=== PATIENT | male | born 1980 | race African-American/Black ===

== ENCOUNTER 2016-09-15 21:08 | Emergency (ER) | payer OTHER ==
--- NOTE | 2016-09-15 23:09 | DIAGNOSTIC IMAGING REPORT ---
PROCEDURE: US SCROTUM/TESTICLE INDICATION: SCROTAL PAIN TECHNIQUE: Booker scale and color Doppler sonographic images through the scrotum were obtained. COMPARISON: None. FINDINGS: RIGHT TESTICLE: Right testicle is of normal size (4.0 x 1.8 cm) with normal vascularity. Right epididymis is normal size and a 1.4 cm simple epididymal cysts. LEFT TESTICLE: Left testicle is of normal size (4.6 x 2.0 cm) with normal vascularity. Left epididymis is of normal size (with a 1.1 cm of simple cyst. Small left hydrocele IMPRESSION: 1. Normal testicles. 2. Bilateral epididymal cysts (right 1.4 cm, left 1.1 cm) represent incidental finding. 3. Small left hydrocele.
--- NOTE | 2016-09-15 23:27 | ED CLINICAL REPORT ---
Clinical Report - Physicians/Mid Levels [facility] [address] [place] [address] 09/15/2016 21:08 Patient: NOMI FERGUSON Arrived- By private vehicle. Historian- patient. HISTORY OF PRESENT ILLNESS Chief Complaint: RIGHT TESTICULAR PAIN. This started past week and is still present. The problem is described as moderate. It was abrupt in onset and has been intermittent but is not gone now. No penile discharge, discomfort with urination, urinary frequency, genital lesion or urgency of urination. No flank pain, Masterson catheter problem, inguinal swelling or problem with the foreskin. The patient has had moderate testicular pain, involving the right testicle with swelling. No redness. Able to void. Not voiding only small amounts. The patient has had exposure to a sexually transmitted disease; (reports yearly negative screens. last was Aug 2016). No homosexual activity. Similar symptoms previously: ( states he followed up with a urologist about a year ago. thought about getting it removed however states he was thinking about having more kids. reports his had her tubes tide recently so will rethink that option.). Recent medical care: Not recently seen/assessed. REVIEW OF SYSTEMS No fever, chills, hematuria, abdominal pain or vomiting. No diarrhea, black stools, bloody stools, chest pain or difficulty breathing. No skin rash. All systems otherwise negative, except as recorded above. PAST HISTORY See nurses notes. No history of sexually transmitted disease. Medications: Albuterol Sulfate Inhalation 1 unit dose, PRN. 3 other inhalers (pt can't remember name ). [place] (med for diabetes). PredniSONE Oral 10 mg, daily. Medication for BP . Albuterol Sulfate HFA Inhalation 2 puffs, as needed. GlyBURIDE Oral 20mg , daily. MetFORMIN HCl Oral 1500mg, 2x a day. Allergies: No Known Drug Allergy. SOCIAL HISTORY Never smoker. No alcohol use or drug use. No recent travel. Is a local resident. ADDITIONAL NOTES The nursing notes have been reviewed. PHYSICAL EXAM Vital Signs: 09/15/2016 21:47 BP: 123/78. HR: 93. RR: 16. O2 saturation: 97%. Temp: 98.3 F. Pain level now: 8/10. Blood pressure normal. Oxygen saturation normal. Appearance: Alert. Oriented X3. No acute distress. CVS: Heart sounds normal. Rate normal. Rhythm normal. There is no decreased capillary refill. Respiratory: No respiratory distress. Breath sounds normal. Abdomen: Soft and nontender. Bowel sounds normal. No organomegaly. No mass. Femoral pulses equal. Back: Normal external inspection. : (normal-appearing external male genitalia. No rashes or lesions. No inguinal lymphadenopathy. No discharge. Normal-appearing glance. Circumcised. Small 1 cm cyst located on the epididymis on the right testicle. The rest of the testicular exam is otherwise unremarkable. Normal smooth contour with normal sized. Scrotum without any erythema or other findings. No signs of foreign nasal gangrene.). Skin: Skin warm and dry. Normal skin color. No rash. Normal skin turgor. Extremities: Extremities exhibit normal ROM. No lower extremity edema. Neuro: Oriented X 3. No motor deficit. No sensory deficit. LABS, X-RAYS, AND EKG Laboratory Tests: UA-Culture if indicated: (RUPALI: 09/15/2016 22:05) ( MsgRcvd 09/15/2016 22:16) Final results Test Result Flag Units (Reference) URINE COLOR YELLOW URINE APPEARANCE CLEAR URINE GLUCOSE 3+ (NEGATIVE) URINE BILIRUBIN NEGATIVE (NEGATIVE) URINE KETONE NEGATIVE (NEGATIVE) URINE SPECIFIC GRAVITY 1.020 (1.010-1.030) URINE PH 6.0 (5.0-8.0) URINE PROTEIN NEGATIVE (NEGATIVE) URINE UROBILINOGEN 0.2 EU/dL (0.2-1.0) URINE NITRITE NEGATIVE (NEGATIVE) URINE BLOOD NEGATIVE (NEGATIVE) URINE LEUK ESTERASE NEGATIVE (NEGATIVE) URINE RBC 0-1 rbc/hpf (0-1) URINE WBC 0-1 wbc/hpf (0-1) URINE EPITHELIAL CELLS 0-1 EPI/hpf (0-5) URINE BACTERIA NONE SEEN (NONE SEEN) URINE COMMENT CULT NOT INDICATED URINE CULTURES ARE SET-UP BASED ON THE FOLLOWING CRITERIA:POSITIVE NITRITEPOSITIVE LEUKOCYTE ESTERASEGREATER THAN 10 WHITE BLOOD CELLSMODERATE (2+) OR GREATER BACTERIA . PROGRESS AND PROCEDURES Course of Care: The patient is a pleasant 36-year-old male with past medical history significant for testicular cyst who presents for evaluation of right-sided testicular pain. The patient appears nontoxic on examination. History and examare negative for any risk factors for sexual transmitted infection. Patient will be violated for testicular pain with ultrasound for evaluation of torsion as well as urinalysis to look for signs of epididymitis or prostatitis. Vital signs in the emergency department otherwise unremarkable. Patient is agreeable to treatment plan. Pain medication as been ordered. patient reevaluated after medications an ultrasound is been performed. The patient is resting in bed and in no acute distress. Patient has headphones on. I discussion with patient in regards to his workup here in the emergency department. No evidence of torsion at this time. Patient is nontoxic. Pain is controlled. I discussion with patient in regards to his presentation here in the emergency department and need for urology follow-up. Do not feel patient needs to be admitted to the hospital or require further emergency department workup/evaluation. Referral to urologist provided from the emergency department. Patient was encouraged to contact his urologist first and use the urology referral second if he is unable to establish contact with his former urologist. Disposition: Discharged. Condition: good. CLINICAL IMPRESSION 09/15/2016 21:47 BP: 123/78. HR: 93. RR: 16. O2 saturation: 97%. Temp: 98.3 F. Pain level now: 8/10. Blood pressure normal. Oxygen saturation normal. Left acute hydrocele. No infected hydrocele. Acute pain in the right testicle. chronic bilateral testicular cysts. INSTRUCTIONS Warnings: GENERAL WARNINGS: Return or contact your physician immediately if your condition worsens or changes unexpectedly, if not improving as expected, or if other problems arise. Specifically return if pain, vomiting, bleeding, breathing difficulty or fever. worsening symptoms or other concerns. Your Current Medications: CONTINUE TAKING THE FOLLOWING MEDICATIONS: 3 other inhalers * : pt can't remember name. Albuterol Sulfate HFA Inhalation : 2 puffs, prn. Albuterol Sulfate Inhalation : 1 unit dose PRN. GlyBURIDE Oral : 20mg daily. [place]* : med for diabetes. Medication for BP *. MetFORMIN HCl Oral : 1500mg 2x a day. PredniSONE Oral : 10 mg daily. Prescription Medications: Percocet 5 mg/325 mg: take 1 tablet orally every 6 hours as needed for pain. Dispense twelve (12). No refill. Substitution is permissible. Follow-up: Return to the emergency department as needed. Follow up with your doctor in three days. Reason for referral: recheck today's concerns. Summary of care provided to patient via paper. Screening today revealed the patient's blood pressure to be in the normal range. The patient should follow up with a primary care provider for blood pressure management. Understanding of the discharge instructions verbalized by patient. Follow-up with: Aryan Ny MD, Urology, , [address] [facility] , [facility], [id number] Follow up in one week. Reason for referral: contact if you are unable to follow up with your urologist. Summary of care provided to patient via paper. (Electronically signed by Feroz Ely Dr. 09/21/2016 5:02)
--- NOTE | 2016-09-15 23:27 | ED ORDER SUMMARY ---
..... Patient: NOMI FERGUSON OrderSheet [facility] VisitID: [id number] [place] [address] 36y, M Registration Date/Time: 09/15/2016 ORDER SHEET Weight: 111.1 kg (stated) Allergies: No Known Drug Allergy GENERAL ORDERS: US Scrotum/Testicular Urgent (21:41 09/15/2016 Nitin Carias) (Ack 21:45 Kaikeba.comnabil ER Secondary School Teacher) UA-Culture if indicated Urgent (21:41 09/15/2016 Nitin Carias) (Ack 21:45 Demetrice ER Secondary School Teacher) (22:06 JQuivey R.N.) MEDICATION ORDERS: Percocet PO 5/325 mg (HIGH ALERT MEDICATION, NOW) (21:57 09/15/2016 Nitin Carias) (Ack 22:04 JQuivey R.N.) (22:06 JQuivey R.N.) IV FLUIDS: ORDER SHEET NOTES: [Electronically signed by Petar Irene R.N. (02:03 09/16/2016)] [Electronically signed by Feroz Ely Dr. (05:02 09/21/2016)] [Electronically locked/signed by Petar Irene R.N. (02:03 09/16/2016)]
--- NOTE | 2016-09-15 23:27 | ED NURSING NOTES ---
Clinical Report - Nurses [facility] [address] [place] [address] 09/15/2016 21:08 Patient: NOMI FERGUSON TRIAGE Triage time 21:47. Acuity: LEVEL 3. Chief Complaint: (Swelling testicles). 22:02. Alert. SEPSIS SCREEN: Sepsis Screen. Negative (no infection suspected/documented). --22:03 Petar Irene R.N. 21:47 09/15/16. BP: 123/78. HR: 93. RR: 16. O2 saturation: 97%. Temp: 98.3 F (oral). Pain level now: 8/10. --22:03 Petar Irene R.N. Weight: 111.1 kg stated. Height/Length: 75 inches Per Patient. BMI: 30.6. --00:00 Petar Irene R.N. Medications Albuterol Sulfate HFA Inhalation 2 puffs, as needed. GlyBURIDE Oral 20mg , daily. MetFORMIN HCl Oral 1500mg, 2x a day. --21:55 Petar Irene R.N. Medication for BP . --21:56 Petar Irene R.N. PredniSONE Oral 10 mg, daily. --21:56 Petar Irene R.N. [place] (med for diabetes). --21:59 Petar Irene R.N. 3 other inhalers (pt can't remember name ). --21:59 Petar Irene R.N. Albuterol Sulfate Inhalation 1 unit dose, PRN. --22:00 Petar Irene R.N. Medication/allergy information source: the patient. --22:03 Petar Irene R.N. Allergies No Known Drug Allergy. --21:54 Petar Irene R.N. History Arrived by private vehicle. Historian: patient. Accompanied by friend. Primary physician (Adelia). Onset. (1 weeks ago). ( Patient reports he had a ultrasound about 1 yr ago and was told he has cysts on his testicles, about 1 week ago he began to have swelling and increased pain of his right). Treatment SAMPLE DYE MIXER: None. SOCIAL HX: No infectious disease exposure. ABUSE ASSESSMENT: No report of abuse. FALL RISK ASSESSMENT: Fall risk assessment completed. No fall risk identified. NUTRITIONAL RISK ASSESSMENT: The nutritional risk assessment revealed no deficiencies. FUNCTIONAL ASSESSMENT: Functional assessment: no impairments noted. LEARNING NEEDS ASSESSMENT: The learning needs assessment revealed no barriers. SKIN INTEGRITY ASSESSMENT: Skin integrity risk assessment completed. No skin integrity risk identified. --22:03 Petar Irene R.N. PROBLEMS: COPD - Chronic Obstructive Pulmonary Disease. Allergic Rhinitis. Headache. Arthritis. Hypertension. Asthma. Diabetes Mellitus. --22:00 Petar Irene R.N. ADDITIONAL SURGERIES: Cholecystectomy. Gallbladder Surgery. --22:00 Petar Irene R.N. Interventions ID band on patient. To treatment room. --22:03 Petar Irene R.N. PHYSICAL ASSESSMENT 21:51. Ambulatory to room. Patient gowned. GENERAL / NEURO / PSYCH: Alert. Oriented X 4. HEENT: Mucous membranes are pink. RESPIRATORY: Respirations not labored. SKIN: Skin is warm and dry. --21:51 Petar Irene R.N. 21:53. GI / : ( right testicle swollen). --21:53 Petar Irene R.N. NURSING PROGRESS NOTES 21:51. Head of bed elevated. Two patient identifiers checked. Call light placed in reach. Side rails up x 1. Bed placed in lowest position. Brakes of bed on. Patient ready for evaluation- chart flagged. --21:51 Petar Irene R.N. 22:01. Patient ID band checked for patient name and birthdate: patient confirmed. Clean catch urine collected with return of yellow-colored clear urine; sample sent to lab for urinalysis. Specimen labeled in the presence of the patient. --22:04 Petar Irene R.N. 22:06 09/15/2016 Percocet (Oxycodone-Acetaminophen) PO 5/325 mg Tablets 1 tab given. Allergies verified, confirmed 5 rights and sedative warning given to the patient. --22:06 Petar Irene R.N. 23:11 medical imaging tech with patient for exam. --23:23 Petar Irene R.N. 23:55. The patient is calm and resting quietly. Overall patient status is improved- he states feels better. SKIN: Skin is warm and dry. Skin color within normal limits. --23:59 Petar Irene R.N. DISPOSITION / DISCHARGE Departure time: 23:58. Condition at departure: stable. No learning barriers present. Discharge instructions provided and reviewed with the patient. Reviewed medication(s) side effects, precautions, dosing and course information. Prescription(s) given to the patient. Patient verbalized understanding. Written instructions provided in Greenlandic. The patient was discharged home and accompanied by inner layer scrubber tender. He left the Emergency Department ambulatory and via private vehicle. Darklight Inspector driving. FALL RISK ASSESSMENT: Fall risk assessment completed. No fall risk identified. --23:59 Petar Irene R.N. 23:55 09/15/16. BP: 120/73. HR: 76. RR: 15. O2 saturation: 100%. Pain level now: 0/10. --23:59 Petar Irene R.N. Locked/Released at 09/16/2016 2:03 by Petar Irene R.N.
--- NOTE | 2016-09-15 23:27 | ED ORDER SUMMARY ---
..... Patient: NOMI FERGUSON OrderSheet [facility] VisitID: [id number] [place] [address] 36y, M Registration Date/Time: 09/15/2016 ORDER SHEET Weight: 111.1 kg (stated) Allergies: No Known Drug Allergy GENERAL ORDERS: US Scrotum/Testicular Urgent (21:41 09/15/2016 Nitin Carias) (Ack 21:45 [place] PERLnabil ER Clinical Evaluator) UA-Culture if indicated Urgent (21:41 09/15/2016 Nitin Carias) (Ack 21:45 Demetrice ER Clinical Evaluator) (22:06 JQuivey R.N.) MEDICATION ORDERS: Percocet PO 5/325 mg (HIGH ALERT MEDICATION, NOW) (21:57 09/15/2016 Nitin Carias) (Ack 22:04 JQuivey R.N.) (22:06 JQuivey R.N.) IV FLUIDS: ORDER SHEET NOTES: [Electronically signed by Petra Irene R.N. (02:03 09/16/2016)] [Electronically signed by Feroz Ely Dr. (05:02 09/21/2016)] [Electronically locked/signed by Petar Irene R.N. (02:03 09/16/2016)]
--- NOTE | 2016-09-15 23:27 | ED NURSING NOTES ---
Clinical Report - Nurses [facility] [address] [place] [address] 09/15/2016 21:08 Patient: NOMI FERGUSON TRIAGE Triage time 21:47. Acuity: LEVEL 3. Chief Complaint: (Swelling testicles). 22:02. Alert. SEPSIS SCREEN: Sepsis Screen. Negative (no infection suspected/documented). --22:03 Petar Irene R.N. 21:47 09/15/16. BP: 123/78. HR: 93. RR: 16. O2 saturation: 97%. Temp: 98.3 F (oral). Pain level now: 8/10. --22:03 Petar Irene R.N. Weight: 111.1 kg stated. Height/Length: 75 inches Per Patient. BMI: 30.6. --00:00 Petar Irene R.N. Medications Albuterol Sulfate HFA Inhalation 2 puffs, as needed. GlyBURIDE Oral 20mg , daily. MetFORMIN HCl Oral 1500mg, 2x a day. --21:55 Petar Irene R.N. Medication for BP . --21:56 Petar Irene R.N. PredniSONE Oral 10 mg, daily. --21:56 Petar Irene R.N. [place] (med for diabetes). --21:59 Petar Irene R.N. 3 other inhalers (pt can't remember name ). --21:59 Petar Irene R.N. Albuterol Sulfate Inhalation 1 unit dose, PRN. --22:00 Ptear Irene R.N. Medication/allergy information source: the patient. --22:03 Petar Irene R.N. Allergies No Known Drug Allergy. --21:54 Petar Irene R.N. History Arrived by private vehicle. Historian: patient. Accompanied by friend. Primary physician (Adelia). Onset. (1 weeks ago). ( Patient reports he had a ultrasound about 1 yr ago and was told he has cysts on his testicles, about 1 week ago he began to have swelling and increased pain of his right). Treatment DETECTIVE AND INTELLIGENCE ANALYST: None. SOCIAL HX: No infectious disease exposure. ABUSE ASSESSMENT: No report of abuse. FALL RISK ASSESSMENT: Fall risk assessment completed. No fall risk identified. NUTRITIONAL RISK ASSESSMENT: The nutritional risk assessment revealed no deficiencies. FUNCTIONAL ASSESSMENT: Functional assessment: no impairments noted. LEARNING NEEDS ASSESSMENT: The learning needs assessment revealed no barriers. SKIN INTEGRITY ASSESSMENT: Skin integrity risk assessment completed. No skin integrity risk identified. --22:03 Petar Irene R.N. PROBLEMS: COPD - Chronic Obstructive Pulmonary Disease. Allergic Rhinitis. Headache. Arthritis. Hypertension. Asthma. Diabetes Mellitus. --22:00 Petar Irene R.N. ADDITIONAL SURGERIES: Cholecystectomy. Gallbladder Surgery. --22:00 Petar Irene R.N. Interventions ID band on patient. To treatment room. --22:03 Petar Irene R.N. PHYSICAL ASSESSMENT 21:51. Ambulatory to room. Patient gowned. GENERAL / NEURO / PSYCH: Alert. Oriented X 4. HEENT: Mucous membranes are pink. RESPIRATORY: Respirations not labored. SKIN: Skin is warm and dry. --21:51 Petar Irene R.N. 21:53. GI / : ( right testicle swollen). --21:53 Petar Irene R.N. NURSING PROGRESS NOTES 21:51. Head of bed elevated. Two patient identifiers checked. Call light placed in reach. Side rails up x 1. Bed placed in lowest position. Brakes of bed on. Patient ready for evaluation- chart flagged. --21:51 Petar Irene R.N. 22:01. Patient ID band checked for patient name and birthdate: patient confirmed. Clean catch urine collected with return of yellow-colored clear urine; sample sent to lab for urinalysis. Specimen labeled in the presence of the patient. --22:04 Petar Irene R.N. 22:06 09/15/2016 Percocet (Oxycodone-Acetaminophen) PO 5/325 mg Tablets 1 tab given. Allergies verified, confirmed 5 rights and sedative warning given to the patient. --22:06 Petar Irene R.N. 23:11 refrigerator repair technician with patient for exam. --23:23 Petar Irene R.N. 23:55. The patient is calm and resting quietly. Overall patient status is improved- he states feels better. SKIN: Skin is warm and dry. Skin color within normal limits. --23:59 Petar Irene R.N. DISPOSITION / DISCHARGE Departure time: 23:58. Condition at departure: stable. No learning barriers present. Discharge instructions provided and reviewed with the patient. Reviewed medication(s) side effects, precautions, dosing and course information. Prescription(s) given to the patient. Patient verbalized understanding. Written instructions provided in Armenian. The patient was discharged home and accompanied by speeder hand. He left the Emergency Department ambulatory and via private vehicle. Mine Exploration Engineer driving. FALL RISK ASSESSMENT: Fall risk assessment completed. No fall risk identified. --23:59 Petar Irene R.N. 23:55 09/15/16. BP: 120/73. HR: 76. RR: 15. O2 saturation: 100%. Pain level now: 0/10. --23:59 Petar Irene R.N. Locked/Released at 09/16/2016 2:03 by Petar Irene R.N.
--- NOTE | 2016-09-21 05:02 | ED DISCHARGE INSTRUCTIONS ---
Patient: NOMI FERGUSON General Instructions [facility] VisitID: [id number] [place] [address] 36y, M Registration Date/Time: 09/15/2016 09/15/2016 21:47 BP: 123/78. HR: 93. RR: 16. O2 saturation: 97%. Temp: 98.3 F. Pain level now: 8/10. Blood pressure normal. Oxygen saturation normal. Left acute hydrocele. No infected hydrocele. Acute pain in the right testicle. chronic bilateral testicular cysts. INSTRUCTIONS Warnings: GENERAL WARNINGS: Return or contact your physician immediately if your condition worsens or changes unexpectedly, if not improving as expected, or if other problems arise. Specifically return if pain, vomiting, bleeding, breathing difficulty or fever. worsening symptoms or other concerns. Your Current Medications: CONTINUE TAKING THE FOLLOWING MEDICATIONS: 3 other inhalers * : pt can't remember name. Albuterol Sulfate HFA Inhalation : 2 puffs, prn. Albuterol Sulfate Inhalation : 1 unit dose PRN. GlyBURIDE Oral : 20mg daily. [place]* : med for diabetes. Medication for BP *. MetFORMIN HCl Oral : 1500mg 2x a day. PredniSONE Oral : 10 mg daily. Prescription Medications: Percocet 5 mg/325 mg: take 1 tablet orally every 6 hours as needed for pain. Dispense twelve (12). No refill. Substitution is permissible. Follow-up: Return to the emergency department as needed. Follow up with your doctor in three days. Reason for referral: recheck today's concerns. Summary of care provided to patient via paper. Screening today revealed the patient's blood pressure to be in the normal range. The patient should follow up with a primary care provider for blood pressure management. Understanding of the discharge instructions verbalized by patient. Follow-up with: Aryan Ny MD, Urology, , [address], , [place], [id number] Follow up in one week. Reason for referral: contact if you are unable to follow up with your urologist. Summary of care provided to patient via paper. ADDITIONAL INFORMATION Hydrocele [Type Not Specified] Inside the womb, the testicles first form in the abdomen of the male fetus. Just before , the testicles move down into the scrotum. As this happens, fluid from the abdomen may pass into the scrotum and become sealed off there in a small sac. This is called a non-communicating hydrocele . In some infants the passage between the abdomen and the scrotum remains open. In this case, the bulge may increase and decrease in size as the fluid passes back and forth from the abdomen to the scrotum. This is called a communicating hydrocele . The danger of this second kind of hydrocele is that it can lead to a hernia . A hernia looks like a painless bulge in the groin or scrotum. An hernia can cause gangrene and rupture of the intestine. This is a life-threatening emergency and requires immediate surgery. So, it must be watched for. Most hydroceles shrink and disappear by the age of one or two years and require no treatment. If the hydrocele does not go away by 2 years of age, it may need to be corrected with surgery. Home Care: A small hydrocele will not interfere in any way with normal activity. There are no special precautions that need to be taken. Follow Up with your doctor or as advised by our staff. with your doctor for routine exams to be sure the hydrocele is shrinking and that no hernia appears. Get Prompt Medical Attention if any of the following occur: -- A new bulge in the groin that appears just above the thigh crease or in the scrotum -- Changes in size of the hydrocele (getting smaller then larger then smaller; or gets larger and stays larger) -- Pain, redness or tenderness in the hydrocele Pain, Uncertain Cause [Acute] Pain is the bodys way of calling attention to a problem. Pain can be caused by many conditions - some minor, some serious. In your case, we were not able to find the exact cause for your pain. However, at this time there is no sign of any serious or life-threatening illness causing your pain. Sometimes more tests will be needed to determine the cause. Other times, just allowing more time to pass will either make it clear what the problem is, or the pain will go away by itself. Home Care: You may use acetaminophen (Tylenol) or ibuprofen (Motrin, Advil) to control pain, unless another medicine was prescribed. [NOTE: If you have chronic liver or kidney disease or ever had a stomach ulcer or GI bleeding, talk with your doctor before using these medicines.] Follow Up with your doctor or as advised by our staff. Get Prompt Medical Attention if any of the following occur: Changes in the pattern of your pain Appearance of new symptoms Fever of 100.4F (38C) or higher, or as directed by your healthcare provider Oxycodone Hydrochloride, Acetaminophen Oral tablet What is this medicine? ACETAMINOPHEN; OXYCODONE (a set a HORACIO janeth fen; ox i KOE done) is a pain reliever. It is used to treat mild to moderate pain. How should I use this medicine? Take this medicine by mouth with a full glass of water. Follow the directions on the prescription label. Take your medicine at regular intervals. Do not take your medicine more often than directed. Talk to your labor relations worker regarding the use of this medicine in children. Special care may be needed. Patients over 65 years old may have a stronger reaction and need a smaller dose. What side effects may I notice from receiving this medicine? Side effects that you should report to your doctor or health animal care specialist as soon as possible: allergic reactions like skin rash, itching or hives, swelling of the face, lips, or tongue breathing difficulties, wheezing confusion light headedness or fainting spells severe stomach pain yellowing of the skin or the whites of the eyes Side effects that usually do not require medical attention (report to your doctor or health animal care specialist if they continue or are bothersome): dizziness drowsiness nausea vomiting What may interact with this medicine? alcohol antihistamines barbiturates like amobarbital, butalbital, butabarbital, methohexital, pentobarbital, phenobarbital, thiopental, and secobarbital benztropine drugs for bladder problems like solifenacin, trospium, oxybutynin, tolterodine, hyoscyamine, and methscopolamine drugs for breathing problems like ipratropium and tiotropium drugs for certain stomach or intestine problems like propantheline, homatropine methylbromide, glycopyrrolate, atropine, belladonna, and dicyclomine general anesthetics like etomidate, ketamine, nitrous oxide, propofol, desflurane, enflurane, halothane, isoflurane, and sevoflurane medicines for depression, anxiety, or psychotic disturbances medicines for sleep muscle relaxants naltrexone narcotic medicines (opiates) for pain phenothiazines like perphenazine, thioridazine, chlorpromazine, mesoridazine, fluphenazine, prochlorperazine, promazine, and trifluoperazine scopolamine tramadol trihexyphenidyl What if I miss a dose? If you miss a dose, take it as soon as you can. If it is almost time for your next dose, take only that dose. Do not take double or extra doses. Where should I keep my medicine? Keep out of the reach of children. This medicine can be abused. Keep your medicine in a safe place to protect it from theft. Do not share this medicine with anyone. Selling or giving away this medicine is dangerous and against the law. Store at room temperature between 20 and 25 degrees C (68 and 77 degrees F). Keep container tightly closed. Protect from light. This medicine may cause accidental overdose and if it is taken by other adults, children, or pets. Flush any unused medicine down the toilet to reduce the chance of harm. Do not use the medicine after the expiration date. What should I tell my health care provider before I take this medicine? They need to know if you have any of these conditions: brain tumor Crohn's disease, inflammatory bowel disease, or ulcerative colitis drink more than 3 alcohol containing drinks per day drug abuse or addiction head injury heart or circulation problems kidney disease or problems going to the bathroom liver disease lung disease, asthma, or breathing problems an unusual or allergic reaction to acetaminophen, oxycodone, other opioid analgesics, other medicines, foods, dyes, or preservatives or trying to get breast-feeding What should I watch for while using this medicine? Tell your doctor or health animal care specialist if your pain does not go away, if it gets worse, or if you have new or a different type of pain. You may develop tolerance to the medicine. Tolerance means that you will need a higher dose of the medication for pain relief. Tolerance is normal and is expected if you take this medicine for a long time. Do not suddenly stop taking your medicine because you may develop a severe reaction. Your body becomes used to the medicine. This does NOT mean you are addicted. Addiction is a behavior related to getting and using a drug for a non-medical reason. If you have pain, you have a medical reason to take pain medicine. Your doctor will tell you how much medicine to take. If your doctor wants you to stop the medicine, the dose will be slowly lowered over time to avoid any side effects. You may get drowsy or dizzy. Do not drive, use machinery, or do anything that needs mental alertness until you know how this medicine affects you. Do not stand or sit up quickly, especially if you are an older patient. This reduces the risk of dizzy or fainting spells. Alcohol may interfere with the effect of this medicine. Avoid alcoholic drinks. There are different types of narcotic medicines (opiates) for pain. If you take more than one type at the same time, you may have more side effects. Give your health care provider a list of all medicines you use. Your doctor will tell you how much medicine to take. Do not take more medicine than directed. Call emergency for help if you have problems breathing. The medicine will cause constipation. Try to have a bowel movement at least every 2 to 3 days. If you do not have a bowel movement for 3 days, call your doctor or health animal care specialist. Do not take Tylenol (acetaminophen) or medicines that have acetaminophen with this medicine. Too much acetaminophen can be very dangerous. Many nonprescription medicines contain acetaminophen. Always read the labels carefully to avoid taking more acetaminophen. You have been given the following additional information: Hydrocele, Type Not Specified Pain, Uncertain Cause (Acute) Oxycodone Hydrochloride, Acetaminophen Oral tablet (Electronically signed by Feroz Ely Dr. 09/21/2016 5:02)
--- NOTE | 2016-09-21 05:02 | ED MAR SUMMARY ---
..... Medication Administration Record [facility] [address] [place] [address] Patient: NOMI FERGUSON Visit ID: [id number] 36y, M Weight: 111.1 kg Height/Length: 75 in BMI: 30.6 ALLERGIES: No Known Drug Allergy Given 22:06 09/15/2016 Petar Irene RJnNJn Medication Administered: PERCOCET [PO] (OXYCODONE-ACETAMINOPHEN), Dose: 1 tab 5/325 mg Tablets PO. Medication Ordered: Percocet PO 5/325 mg (HIGH ALERT MEDICATION, NOW).
--- NOTE | 2016-09-21 05:02 | ED MAR SUMMARY ---
..... Medication Administration Record [facility] [address] [place] [address] Patient: NOMI FERGUSON Visit ID: [id number] 36y, M Weight: 111.1 kg Height/Length: 75 in BMI: 30.6 ALLERGIES: No Known Drug Allergy Given 22:06 09/15/2016 Petar Irene RJnNJn Medication Administered: PERCOCET [PO] (OXYCODONE-ACETAMINOPHEN), Dose: 1 tab 5/325 mg Tablets PO. Medication Ordered: Percocet PO 5/325 mg (HIGH ALERT MEDICATION, NOW).
--- NOTE | 2016-09-21 05:02 | ED MED RECONCILIATION SUMMARY ---
Patient: NOMI FERGUSON Medication Reconciliation Report [facility] VisitID: [id number] [address] [place] [address] 36y, M Registration Date/Time: 09/15/2016 Weight: 111.1 kg Height/Length: 75 in. BMI: 30.6 ALLERGIES: No Known Drug Allergy The patient's Home Medications are listed below: CONTINUE TAKING THE FOLLOWING MEDICATIONS: 3 other inhalers , pt can't remember name Albuterol Sulfate HFA Inhalation 2 puffs Albuterol Sulfate Inhalation 1 unit dose, PRN GlyBURIDE Oral 20mg , daily [place], med for diabetes Medication for BP MetFORMIN HCl Oral 1500mg, 2x a day PredniSONE Oral 10 mg, daily The source(s) of the original Home Medication information: patient The following Medications were given to the patient in the Emergency Department: Percocet [PO] PO 1 tab, administered: 09/15/2016 10:06:00 PM The following Medications were prescribed to the patient: Percocet 5 mg/325 mg: take 1 tablet orally every 6 hours as needed for pain. Dispense twelve (12). No refill. Substitution is permissible. -- Feroz Ely Dr.
--- NOTE | 2016-09-21 05:02 | ED MED RECONCILIATION SUMMARY ---
Patient: NOMI FERGUSON Medication Reconciliation Report [facility] VisitID: [id number] [address] [place] [address] 36y, M Registration Date/Time: 09/15/2016 Weight: 111.1 kg Height/Length: 75 in. BMI: 30.6 ALLERGIES: No Known Drug Allergy The patient's Home Medications are listed below: CONTINUE TAKING THE FOLLOWING MEDICATIONS: 3 other inhalers , pt can't remember name Albuterol Sulfate HFA Inhalation 2 puffs Albuterol Sulfate Inhalation 1 unit dose, PRN GlyBURIDE Oral 20mg , daily [place], med for diabetes Medication for BP MetFORMIN HCl Oral 1500mg, 2x a day PredniSONE Oral 10 mg, daily The source(s) of the original Home Medication information: patient The following Medications were given to the patient in the Emergency Department: Percocet [PO] PO 1 tab, administered: 09/15/2016 10:06:00 PM The following Medications were prescribed to the patient: Percocet 5 mg/325 mg: take 1 tablet orally every 6 hours as needed for pain. Dispense twelve (12). No refill. Substitution is permissible. -- Feroz Ely Dr.
--- NOTE | 2016-09-21 05:02 | ED DISCHARGE INSTRUCTIONS ---
Patient: NOMI FERGUSON General Instructions [facility] VisitID: [id number] [place] [address] 36y, M Registration Date/Time: 09/15/2016 09/15/2016 21:47 BP: 123/78. HR: 93. RR: 16. O2 saturation: 97%. Temp: 98.3 F. Pain level now: 8/10. Blood pressure normal. Oxygen saturation normal. Left acute hydrocele. No infected hydrocele. Acute pain in the right testicle. chronic bilateral testicular cysts. INSTRUCTIONS Warnings: GENERAL WARNINGS: Return or contact your physician immediately if your condition worsens or changes unexpectedly, if not improving as expected, or if other problems arise. Specifically return if pain, vomiting, bleeding, breathing difficulty or fever. worsening symptoms or other concerns. Your Current Medications: CONTINUE TAKING THE FOLLOWING MEDICATIONS: 3 other inhalers * : pt can't remember name. Albuterol Sulfate HFA Inhalation : 2 puffs, prn. Albuterol Sulfate Inhalation : 1 unit dose PRN. GlyBURIDE Oral : 20mg daily. [place]* : med for diabetes. Medication for BP *. MetFORMIN HCl Oral : 1500mg 2x a day. PredniSONE Oral : 10 mg daily. Prescription Medications: Percocet 5 mg/325 mg: take 1 tablet orally every 6 hours as needed for pain. Dispense twelve (12). No refill. Substitution is permissible. Follow-up: Return to the emergency department as needed. Follow up with your doctor in three days. Reason for referral: recheck today's concerns. Summary of care provided to patient via paper. Screening today revealed the patient's blood pressure to be in the normal range. The patient should follow up with a primary care provider for blood pressure management. Understanding of the discharge instructions verbalized by patient. Follow-up with: Aryan Ny MD, Urology, , [address] [address] [facility], , [place], [address] Follow up in one week. Reason for referral: contact if you are unable to follow up with your urologist. Summary of care provided to patient via paper. ADDITIONAL INFORMATION Hydrocele [Type Not Specified] Inside the womb, the testicles first form in the abdomen of the male fetus. Just before , the testicles move down into the scrotum. As this happens, fluid from the abdomen may pass into the scrotum and become sealed off there in a small sac. This is called a non-communicating hydrocele . In some infants the passage between the abdomen and the scrotum remains open. In this case, the bulge may increase and decrease in size as the fluid passes back and forth from the abdomen to the scrotum. This is called a communicating hydrocele . The danger of this second kind of hydrocele is that it can lead to a hernia . A hernia looks like a painless bulge in the groin or scrotum. An hernia can cause gangrene and rupture of the intestine. This is a life-threatening emergency and requires immediate surgery. So, it must be watched for. Most hydroceles shrink and disappear by the age of one or two years and require no treatment. If the hydrocele does not go away by 2 years of age, it may need to be corrected with surgery. Home Care: A small hydrocele will not interfere in any way with normal activity. There are no special precautions that need to be taken. Follow Up with your doctor or as advised by our staff. with your doctor for routine exams to be sure the hydrocele is shrinking and that no hernia appears. Get Prompt Medical Attention if any of the following occur: -- A new bulge in the groin that appears just above the thigh crease or in the scrotum -- Changes in size of the hydrocele (getting smaller then larger then smaller; or gets larger and stays larger) -- Pain, redness or tenderness in the hydrocele Pain, Uncertain Cause [Acute] Pain is the bodys way of calling attention to a problem. Pain can be caused by many conditions - some minor, some serious. In your case, we were not able to find the exact cause for your pain. However, at this time there is no sign of any serious or life-threatening illness causing your pain. Sometimes more tests will be needed to determine the cause. Other times, just allowing more time to pass will either make it clear what the problem is, or the pain will go away by itself. Home Care: You may use acetaminophen (Tylenol) or ibuprofen (Motrin, Advil) to control pain, unless another medicine was prescribed. [NOTE: If you have chronic liver or kidney disease or ever had a stomach ulcer or GI bleeding, talk with your doctor before using these medicines.] Follow Up with your doctor or as advised by our staff. Get Prompt Medical Attention if any of the following occur: Changes in the pattern of your pain Appearance of new symptoms Fever of 100.4F (38C) or higher, or as directed by your healthcare provider Oxycodone Hydrochloride, Acetaminophen Oral tablet What is this medicine? ACETAMINOPHEN; OXYCODONE (a set a HORACIO janeth fen; ox i KOE done) is a pain reliever. It is used to treat mild to moderate pain. How should I use this medicine? Take this medicine by mouth with a full glass of water. Follow the directions on the prescription label. Take your medicine at regular intervals. Do not take your medicine more often than directed. Talk to your straw hat brusher regarding the use of this medicine in children. Special care may be needed. Patients over 65 years old may have a stronger reaction and need a smaller dose. What side effects may I notice from receiving this medicine? Side effects that you should report to your doctor or health palliative care nurse practitioner as soon as possible: allergic reactions like skin rash, itching or hives, swelling of the face, lips, or tongue breathing difficulties, wheezing confusion light headedness or fainting spells severe stomach pain yellowing of the skin or the whites of the eyes Side effects that usually do not require medical attention (report to your doctor or health palliative care nurse practitioner if they continue or are bothersome): dizziness drowsiness nausea vomiting What may interact with this medicine? alcohol antihistamines barbiturates like amobarbital, butalbital, butabarbital, methohexital, pentobarbital, phenobarbital, thiopental, and secobarbital benztropine drugs for bladder problems like solifenacin, trospium, oxybutynin, tolterodine, hyoscyamine, and methscopolamine drugs for breathing problems like ipratropium and tiotropium drugs for certain stomach or intestine problems like propantheline, homatropine methylbromide, glycopyrrolate, atropine, belladonna, and dicyclomine general anesthetics like etomidate, ketamine, nitrous oxide, propofol, desflurane, enflurane, halothane, isoflurane, and sevoflurane medicines for depression, anxiety, or psychotic disturbances medicines for sleep muscle relaxants naltrexone narcotic medicines (opiates) for pain phenothiazines like perphenazine, thioridazine, chlorpromazine, mesoridazine, fluphenazine, prochlorperazine, promazine, and trifluoperazine scopolamine tramadol trihexyphenidyl What if I miss a dose? If you miss a dose, take it as soon as you can. If it is almost time for your next dose, take only that dose. Do not take double or extra doses. Where should I keep my medicine? Keep out of the reach of children. This medicine can be abused. Keep your medicine in a safe place to protect it from theft. Do not share this medicine with anyone. Selling or giving away this medicine is dangerous and against the law. Store at room temperature between 20 and 25 degrees C (68 and 77 degrees F). Keep container tightly closed. Protect from light. This medicine may cause accidental overdose and if it is taken by other adults, children, or pets. Flush any unused medicine down the toilet to reduce the chance of harm. Do not use the medicine after the expiration date. What should I tell my health care provider before I take this medicine? They need to know if you have any of these conditions: brain tumor Crohn's disease, inflammatory bowel disease, or ulcerative colitis drink more than 3 alcohol containing drinks per day drug abuse or addiction head injury heart or circulation problems kidney disease or problems going to the bathroom liver disease lung disease, asthma, or breathing problems an unusual or allergic reaction to acetaminophen, oxycodone, other opioid analgesics, other medicines, foods, dyes, or preservatives or trying to get breast-feeding What should I watch for while using this medicine? Tell your doctor or health palliative care nurse practitioner if your pain does not go away, if it gets worse, or if you have new or a different type of pain. You may develop tolerance to the medicine. Tolerance means that you will need a higher dose of the medication for pain relief. Tolerance is normal and is expected if you take this medicine for a long time. Do not suddenly stop taking your medicine because you may develop a severe reaction. Your body becomes used to the medicine. This does NOT mean you are addicted. Addiction is a behavior related to getting and using a drug for a non-medical reason. If you have pain, you have a medical reason to take pain medicine. Your doctor will tell you how much medicine to take. If your doctor wants you to stop the medicine, the dose will be slowly lowered over time to avoid any side effects. You may get drowsy or dizzy. Do not drive, use machinery, or do anything that needs mental alertness until you know how this medicine affects you. Do not stand or sit up quickly, especially if you are an older patient. This reduces the risk of dizzy or fainting spells. Alcohol may interfere with the effect of this medicine. Avoid alcoholic drinks. There are different types of narcotic medicines (opiates) for pain. If you take more than one type at the same time, you may have more side effects. Give your health care provider a list of all medicines you use. Your doctor will tell you how much medicine to take. Do not take more medicine than directed. Call emergency for help if you have problems breathing. The medicine will cause constipation. Try to have a bowel movement at least every 2 to 3 days. If you do not have a bowel movement for 3 days, call your doctor or health palliative care nurse practitioner. Do not take Tylenol (acetaminophen) or medicines that have acetaminophen with this medicine. Too much acetaminophen can be very dangerous. Many nonprescription medicines contain acetaminophen. Always read the labels carefully to avoid taking more acetaminophen. You have been given the following additional information: Hydrocele, Type Not Specified Pain, Uncertain Cause (Acute) Oxycodone Hydrochloride, Acetaminophen Oral tablet (Electronically signed by Feroz Ely Dr. 09/21/2016 5:02)
== END 2016-09-15 23:58 | disposition home or self-care (01) ==
LOC: ED SRH 21:08
DX: N50.811 Right testicular pain (principal); N44.2 Benign cyst of testis; I10 Essential (primary) hypertension; E11.9 Type 2 diabetes mellitus without complications; Z79.84 Long term (current) use of oral hypoglycemic drugs; Z79.899 Other long term (current) drug therapy
CPT/HCPCS: 90004

== ENCOUNTER 2016-10-22 02:33 | Emergency (ER) | payer OTHER ==
--- NOTE | 2016-10-22 03:05 | ED NURSING NOTES ---
Clinical Report - Nurses [facility] [address] [place] [address] 10/22/2016 2:33 Patient: NOMI FERGUSON TRIAGE Triage time 02:42. Acuity: LEVEL 4. Chief Complaint: NECK PAIN, BACK PAIN and JOINT PAIN (Onset of R shoulder, neck, and back pain started last week. States pain has gotten worse. Alleviating factors: none; Aggravating factors: movement.). Alert. No acute distress. SEPSIS SCREEN: Sepsis Screen: negative. Negative (no infection suspected/documented). --02:47 Glen Lomeli R.N. 02:42 10/22/16. BP: 136/83 (large adult cuff) taken on the left arm, via an automated monitor, while sitting. HR: 81 (normal rate). RR: 18 (regular, unlabored and normal). O2 saturation: 99% on room air. Temp: 98 F (oral). Pain level now: 05/06. --02:47 Glen Lomeli R.N. Weight: 119.2 kg stated. Height/Length: 75 inches Per Patient. BMI: 32.8. --02:44 Glen Lomeli R.N. Medications 3 other inhalers (pt can't remember name ). Albuterol Sulfate HFA Inhalation 2 puffs, as needed. --02:45 Glen Lomeli R.N. Albuterol Sulfate Inhalation 1 unit dose, PRN. GlyBURIDE Oral 20mg , daily. [place] (med for diabetes). Medication for BP . MetFORMIN HCl Oral 1500mg, 2x a day. PredniSONE Oral 10 mg, daily. --02:45 Glen Lomeli R.N. Allergies Shellfish-derived Products. --02:45 Glen Lomeli R.N. Medication/allergy information source: the patient. --02:47 Glen Lomeli R.N. History Arrived by private vehicle. Historian: patient. Accompanied by friend. Primary physician (Dr. Delvalle). Onset. (about 1 week ago). No chills, fever, sweating episodes, chest pain or difficulty breathing. Treatment OFFICE MACHINE SERVICER APPRENTICE: None. PAST MEDICAL HX: Immunizations: up-to-date. Has not received seasonal influenza immunization. SOCIAL HX: Current every day light tobacco smoker (cigarette)- less than 1/2 a pack per day. History of drug use: marijuana. Recently used drugs days ago. No alcohol use. He has not traveled outside the [place] The patient was not exposed to MRSA. No infectious disease exposure. ABUSE ASSESSMENT: Abuse assessment: The patient was asked "Do you feel safe in your home?" and "Has anyone hurt you or threatened to hurt you?". No report of abuse. SELF HARM ASSESSMENT: A self harm assessment was performed. The patient answered "no" to the question "Have you recently felt down, depressed, or hopeless?", "Have you noticed less interest or pleasure in doing things?", "Do you have thoughts of harming or killing yourself?" and "Have you recently had thoughts about harming or killing others?". FALL RISK ASSESSMENT: Fall risk assessment completed. No fall risk identified. NUTRITIONAL RISK ASSESSMENT: The nutritional risk assessment revealed no deficiencies. FUNCTIONAL ASSESSMENT: Functional assessment: no impairments noted. LEARNING NEEDS ASSESSMENT: The learning needs assessment revealed no barriers. SKIN INTEGRITY ASSESSMENT: Skin integrity risk assessment completed. No skin integrity risk identified. --02:47 Glen Lomeli R.N. PROBLEMS: Acute Pain. Hydrocele. COPD - Chronic Obstructive Pulmonary Disease. Abscess. Allergic Rhinitis. Sprain. Headache. Arthritis. Sinusitis. Pharyngitis. Hypertension. Asthma. Diabetes Mellitus. --02:45 Glen Lomeli RJnN. ADDITIONAL SURGERIES: Cholecystectomy. Gallbladder Surgery. --02:45 Glen Lomeli R.N. Assessment GENERAL / NEURO / PSYCH: Alert. Oriented X 4. Appears in no acute distress. Guys Coma Scale: 15- eyes open spontaneously (4); best verbal response- oriented x 4 (5); best motor response- obeys commands (6). Patient appears calm and cooperative. RESPIRATORY: Respirations not labored. SKIN: Skin is warm and dry. --02:47 Glen Lomeli R.N. Interventions ID band on patient. To treatment room. --02:47 Glen Lomeli R.N. NURSING PROGRESS NOTES The initial plan of care for this patient has been created This plan of care was discussed with the patient. Patient gowned. Reassurance given to the patient. Two patient identifiers checked. Call light placed in reach. Side rails up x 1. Bed placed in lowest position. Brakes of bed on. --02:47 Glen Lomeli R.N. Patient gowned. Patient identifiers checked. Call light placed in reach. Side rails up x 1. Bed placed in lowest position. Brakes of bed on. --02:49 Pablito Dixon 03:08 10/22/2016 Toradol (Ketorolac Tromethamine) IM 60 mg given. Given in the left deltoid. Allergies verified and confirmed 5 rights. --03:08 Hubert Rossi R.N. 03:08 10/22/2016 Hydrocodone-APAP (Hydrocodone-Acetaminophen) PO 5/325 mg Tablets 1 tab given. Allergies verified, confirmed 5 rights and sedative warning given to the patient. --03:08 Hubert Rossi R.N. DISPOSITION / DISCHARGE Condition at departure: improved. The goals identified in the patient's plan of care were met. Reviewed medication(s) side effects, precautions, dosing and course information. Prescription(s) given to the patient. Patient verbalized understanding. Written instructions provided in Georgian. The patient was discharged home and accompanied by spouse. He left the Emergency Department ambulatory and via private vehicle. Spouse driving. --03:19 Hubert Rossi R.N. Departure time: 1519 AM. --03:20 Hubert Rossi R.N. Locked/Released at 10/22/2016 3:20 by Hubert Rossi R.N.
--- NOTE | 2016-10-22 03:05 | ED CLINICAL REPORT ---
Clinical Report - Physicians/Mid Levels [facility] [address] [place] [address] 10/22/2016 2:33 Patient: NOMI FERGUSON Time Seen: 0250. Arrived- By private vehicle. Historian- patient. HISTORY OF PRESENT ILLNESS Chief Complaint: NECK PAIN. It is described as being moderate in degree and in the area of the right side of the cervical spine and right trapezius. The quality is noted to be sharp ("tingly like pins and needles"). Onset- past several weeks and it is still present (staying the same). It was abrupt in onset and has been constant but is not gone now. No bladder dysfunction, bowel dysfunction, sensory loss or motor loss. Additional history - reports no fever, hx of IV drug use, urinary retention, hx of CA. Patient denies an injury. No other injury. Similar symptoms previously: Many times. ( working with his doctor for treatment. reports scheduled for "steroid shots" next week.). Recent medical care: The patient was seen recently in the emergency department. REVIEW OF SYSTEMS No fever, skin rash, abdominal pain, nausea or vomiting. All systems otherwise negative, except as recorded above. PAST HISTORY See nurses notes. Medications: Albuterol Sulfate Inhalation 1 unit dose, PRN. GlyBURIDE Oral 20mg , daily. [place] (med for diabetes). Medication for BP . MetFORMIN HCl Oral 1500mg, 2x a day. PredniSONE Oral 10 mg, daily. 3 other inhalers (pt can't remember name ). Albuterol Sulfate HFA Inhalation 2 puffs, as needed. Allergies: Shellfish-derived Products. SOCIAL HISTORY Never smoker. No alcohol use or drug use. Is a local resident. ADDITIONAL NOTES The nursing notes have been reviewed. PHYSICAL EXAM Vital Signs: 10/22/2016 02:42 BP: 136/83. HR: 81. RR: 18. O2 saturation: 99%. Temp: 98 F. Pain level now: 9/10. Blood pressure normal. Oxygen saturation normal. Appearance: Alert. No acute distress. HEENT: Normal external inspection. Eyes: Pupils equal, round and reactive to light. ENT: Ears normal. Pharynx normal. Neck: Normal inspection. No vertebral tenderness. No lymphadenopathy or meningeal signs. (right paraspinal cervical tenderness. no overlying skin changes. no midline tenderness. skin intact. no step offs. no crepitus.). CVS: Normal heart rate and rhythm. Heart sounds normal. Pulses normal. Respiratory: No respiratory distress. Breath sounds normal. Chest nontender. No rales, rhonchi or wheezes. Abdomen: Normal inspection. Soft and nontender. Bowel sounds normal. No mass. Back: Normal inspection. No tenderness. Painless ROM. Skin: Skin warm and dry. Normal skin color. No rash. Normal skin turgor. Extremities: Extremities exhibit normal ROM. Extremities nontender. Neuro: Oriented X 3. Mood/affect normal. No motor deficit. No sensory deficit. PROGRESS AND PROCEDURES Course of Care: The patient is a pleasant 36 yo male presenting for evaluation of neck pain. On examination/history the patient does not have any signs of meningitis or cauda equina/conus medullaris. No evidence of paraspinal infection or epidural abscess. No red flags. Patient does not require imaging at this time. No evidence of cord compromise. Patient appears nontoxic and is in no acute distress. At this point, feel the risks of imaging outweigh the benefits. Conservative management recommended. Pain medication offered here in the emergency department. Patient is agreeable to the treatment plan. Pain medication provided here in the emergency department. Patient continues to be in no acute distress and resting comfortably. Do not feel further workup in the emergency department or admission to the hospital require at this point in time. I discussed with the patient workup, diagnosis, home care, follow-up, and return precautions. All questions have been answered. The patient expressed understanding of these instructions and was agreeable to them. Patient's KENIA reviewed. Patient reports having no addiction problems and has not had problems with "pain pills" since 2013. Discussed with patient my concern for addiction problems in the future. Patient reports no improvement with "muscle relaxers." Patient has been appropriate in the ED and cooperative. Do not feel there would be a problem with providing patient with small prescription of [place]. Do not want patient to feel ostracized for something that happened in the past. Disposition: Discharged. Condition: good. CLINICAL IMPRESSION Acute neck pain. (right sided). INSTRUCTIONS Warnings: GENERAL WARNINGS: Return or contact your physician immediately if your condition worsens or changes unexpectedly, if not improving as expected, or if other problems arise. SPECIFICALLY, return if you develop weakness, numbness, tingling, pain or incontinence. Your Current Medications: CONTINUE TAKING THE FOLLOWING MEDICATIONS: 3 other inhalers * : pt can't remember name. Albuterol Sulfate HFA Inhalation : 2 puffs, prn. Albuterol Sulfate Inhalation : 1 unit dose PRN. GlyBURIDE Oral : 20mg daily. [place]* : med for diabetes. Medication for BP *. MetFORMIN HCl Oral : 1500mg 2x a day. PredniSONE Oral : 10 mg daily. Prescription Medications: [place] 5 mg / 325 mg tablets: take 1 orally every 6 hours. Dispense ten (10). No refill. Substitution is permissible. Follow-up: Return to the emergency department as needed. Follow up with your doctor in three days. Reason for referral: recheck today's concerns. Summary of care provided to patient via paper. Screening today revealed the patient's blood pressure to be in the normal range. The patient should follow up with a primary care provider for blood pressure management. Understanding of the discharge instructions verbalized by patient. (Electronically signed by Feroz Ely Dr. 10/29/2016 10:22)
--- NOTE | 2016-10-22 03:05 | ED CLINICAL REPORT ---
Clinical Report - Physicians/Mid Levels [facility] [address] [place] [address] 10/22/2016 2:33 Patient: NOMI FERGUSON Time Seen: 0250. Arrived- By private vehicle. Historian- patient. HISTORY OF PRESENT ILLNESS Chief Complaint: NECK PAIN. It is described as being moderate in degree and in the area of the right side of the cervical spine and right trapezius. The quality is noted to be sharp ("tingly like pins and needles"). Onset- past several weeks and it is still present (staying the same). It was abrupt in onset and has been constant but is not gone now. No bladder dysfunction, bowel dysfunction, sensory loss or motor loss. Additional history - reports no fever, hx of IV drug use, urinary retention, hx of CA. Patient denies an injury. No other injury. Similar symptoms previously: Many times. ( working with his doctor for treatment. reports scheduled for "steroid shots" next week.). Recent medical care: The patient was seen recently in the emergency department. REVIEW OF SYSTEMS No fever, skin rash, abdominal pain, nausea or vomiting. All systems otherwise negative, except as recorded above. PAST HISTORY See nurses notes. Medications: Albuterol Sulfate Inhalation 1 unit dose, PRN. GlyBURIDE Oral 20mg , daily. [place] (med for diabetes). Medication for BP . MetFORMIN HCl Oral 1500mg, 2x a day. PredniSONE Oral 10 mg, daily. 3 other inhalers (pt can't remember name ). Albuterol Sulfate HFA Inhalation 2 puffs, as needed. Allergies: Shellfish-derived Products. SOCIAL HISTORY Never smoker. No alcohol use or drug use. Is a local resident. ADDITIONAL NOTES The nursing notes have been reviewed. PHYSICAL EXAM Vital Signs: 10/22/2016 02:42 BP: 136/83. HR: 81. RR: 18. O2 saturation: 99%. Temp: 98 F. Pain level now: 9/10. Blood pressure normal. Oxygen saturation normal. Appearance: Alert. No acute distress. HEENT: Normal external inspection. Eyes: Pupils equal, round and reactive to light. ENT: Ears normal. Pharynx normal. Neck: Normal inspection. No vertebral tenderness. No lymphadenopathy or meningeal signs. (right paraspinal cervical tenderness. no overlying skin changes. no midline tenderness. skin intact. no step offs. no crepitus.). CVS: Normal heart rate and rhythm. Heart sounds normal. Pulses normal. Respiratory: No respiratory distress. Breath sounds normal. Chest nontender. No rales, rhonchi or wheezes. Abdomen: Normal inspection. Soft and nontender. Bowel sounds normal. No mass. Back: Normal inspection. No tenderness. Painless ROM. Skin: Skin warm and dry. Normal skin color. No rash. Normal skin turgor. Extremities: Extremities exhibit normal ROM. Extremities nontender. Neuro: Oriented X 3. Mood/affect normal. No motor deficit. No sensory deficit. PROGRESS AND PROCEDURES Course of Care: The patient is a pleasant 36 yo male presenting for evaluation of neck pain. On examination/history the patient does not have any signs of meningitis or cauda equina/conus medullaris. No evidence of paraspinal infection or epidural abscess. No red flags. Patient does not require imaging at this time. No evidence of cord compromise. Patient appears nontoxic and is in no acute distress. At this point, feel the risks of imaging outweigh the benefits. Conservative management recommended. Pain medication offered here in the emergency department. Patient is agreeable to the treatment plan. Pain medication provided here in the emergency department. Patient continues to be in no acute distress and resting comfortably. Do not feel further workup in the emergency department or admission to the hospital require at this point in time. I discussed with the patient workup, diagnosis, home care, follow-up, and return precautions. All questions have been answered. The patient expressed understanding of these instructions and was agreeable to them. Patient's KENIA reviewed. Patient reports having no addiction problems and has not had problems with "pain pills" since 2013. Discussed with patient my concern for addiction problems in the future. Patient reports no improvement with "muscle relaxers." Patient has been appropriate in the ED and cooperative. Do not feel there would be a problem with providing patient with small prescription of [place]. Do not want patient to feel ostracized for something that happened in the past. Disposition: Discharged. Condition: good. CLINICAL IMPRESSION Acute neck pain. (right sided). INSTRUCTIONS Warnings: GENERAL WARNINGS: Return or contact your physician immediately if your condition worsens or changes unexpectedly, if not improving as expected, or if other problems arise. SPECIFICALLY, return if you develop weakness, numbness, tingling, pain or incontinence. Your Current Medications: CONTINUE TAKING THE FOLLOWING MEDICATIONS: 3 other inhalers * : pt can't remember name. Albuterol Sulfate HFA Inhalation : 2 puffs, prn. Albuterol Sulfate Inhalation : 1 unit dose PRN. GlyBURIDE Oral : 20mg daily. [place]* : med for diabetes. Medication for BP *. MetFORMIN HCl Oral : 1500mg 2x a day. PredniSONE Oral : 10 mg daily. Prescription Medications: [place] 5 mg / 325 mg tablets: take 1 orally every 6 hours. Dispense ten (10). No refill. Substitution is permissible. Follow-up: Return to the emergency department as needed. Follow up with your doctor in three days. Reason for referral: recheck today's concerns. Summary of care provided to patient via paper. Screening today revealed the patient's blood pressure to be in the normal range. The patient should follow up with a primary care provider for blood pressure management. Understanding of the discharge instructions verbalized by patient. (Electronically signed by Feroz Ely Dr. 10/29/2016 10:22)
--- NOTE | 2016-10-22 03:05 | ED ORDER SUMMARY ---
..... Patient: NOMI FERGUSON OrderSheet [facility] VisitID: [id number] [address] [place] [address] 36y, M Registration Date/Time: 10/22/2016 ORDER SHEET Weight: 119.2 kg (stated) Allergies: Shellfish-derived Products GENERAL ORDERS: MEDICATION ORDERS: Toradol IM 60 mg (NOW) (02:59 10/22/2016 Nitin Carias) (3:08 Sarai R.N.) Hydrocodone-APAP PO 5/325 mg (NOW, HIGH ALERT MEDICATION) (03:00 10/22/2016 Nitin Carias) (3:08 Sarai Horn.[place].) IV FLUIDS: ORDER SHEET NOTES: [Electronically signed by Hubert Rossi R.N. (03:20 10/22/2016)] [Electronically signed by Feroz Ely Dr. (10:22 10/29/2016)] [Electronically locked/signed by Hubert Rossi R.N. (03:20 10/22/2016)]
--- NOTE | 2016-10-22 03:05 | ED ORDER SUMMARY ---
..... Patient: NOMI FERGUSON OrderSheet [facility] VisitID: [id number] [address] [place] [address] 36y, M Registration Date/Time: 10/22/2016 ORDER SHEET Weight: 119.2 kg (stated) Allergies: Shellfish-derived Products GENERAL ORDERS: MEDICATION ORDERS: Toradol IM 60 mg (NOW) (02:59 10/22/2016 Nitin Carias) (3:08 Sarai R.N.) Hydrocodone-APAP PO 5/325 mg (NOW, HIGH ALERT MEDICATION) (03:00 10/22/2016 Nitin Carias) (3:08 Sarai Horn.[place]eth[place].) IV FLUIDS: ORDER SHEET NOTES: [Electronically signed by Hubert Rossi R.N. (03:20 10/22/2016)] [Electronically signed by Feroz Ely Dr. (10:22 10/29/2016)] [Electronically locked/signed by Hubert Rossi R.N. (03:20 10/22/2016)]
--- NOTE | 2016-10-29 10:22 | ED MED RECONCILIATION SUMMARY ---
Patient: NOMI FERGUSON Medication Reconciliation Report [facility] VisitID: [id number] [address] [place] [address] 36y, M Registration Date/Time: 10/22/2016 Weight: 119.2 kg Height/Length: 75 in. BMI: 32.8 ALLERGIES: Shellfish-derived Products The patient's Home Medications are listed below: CONTINUE TAKING THE FOLLOWING MEDICATIONS: 3 other inhalers , pt can't remember name Albuterol Sulfate HFA Inhalation 2 puffs Albuterol Sulfate Inhalation 1 unit dose, PRN GlyBURIDE Oral 20mg , daily [place], med for diabetes Medication for BP MetFORMIN HCl Oral 1500mg, 2x a day PredniSONE Oral 10 mg, daily The source(s) of the original Home Medication information: patient The following Medications were given to the patient in the Emergency Department: Toradol [IM] IM 60 mg, administered: 10/22/2016 3:08:00 AM Hydrocodone-APAP [PO] PO 1 tab, administered: 10/22/2016 3:08:00 AM The following Medications were prescribed to the patient: [place] 5 mg / 325 mg tablets: take 1 orally every 6 hours. Dispense ten (10). No refill. Substitution is permissible. -- Feroz Ely Dr.
--- NOTE | 2016-10-29 10:22 | ED MAR SUMMARY ---
..... Medication Administration Record Merged With [facility] [address] [place] [address] Patient: NOMI FERGUSON Visit ID: [id number] 36y, M Weight: 119.2 kg Height/Length: 75 in BMI: 32.8 ALLERGIES: Shellfish-derived Products Given 03:08 10/22/2016 Hubert Rossi, R.N. Medication Administered: TORADOL [IM] (KETOROLAC TROMETHAMINE), Dose: 60 mg IM. Medication Ordered: Toradol IM 60 mg (NOW). Given 03:08 10/22/2016 Hubert Rossi, R.N. Medication Administered: HYDROCODONE-APAP [PO] (HYDROCODONE-ACETAMINOPHEN), Dose: 1 tab 5/325 mg Tablets PO. Medication Ordered: Hydrocodone-APAP PO 5/325 mg (NOW, HIGH ALERT MEDICATION).
--- NOTE | 2016-10-29 10:22 | ED MED RECONCILIATION SUMMARY ---
Patient: NOMI FERGUSON Medication Reconciliation Report [facility] VisitID: [id number] [address] [place] [address] 36y, M Registration Date/Time: 10/22/2016 Weight: 119.2 kg Height/Length: 75 in. BMI: 32.8 ALLERGIES: Shellfish-derived Products The patient's Home Medications are listed below: CONTINUE TAKING THE FOLLOWING MEDICATIONS: 3 other inhalers , pt can't remember name Albuterol Sulfate HFA Inhalation 2 puffs Albuterol Sulfate Inhalation 1 unit dose, PRN GlyBURIDE Oral 20mg , daily [place], med for diabetes Medication for BP MetFORMIN HCl Oral 1500mg, 2x a day PredniSONE Oral 10 mg, daily The source(s) of the original Home Medication information: patient The following Medications were given to the patient in the Emergency Department: Toradol [IM] IM 60 mg, administered: 10/22/2016 3:08:00 AM Hydrocodone-APAP [PO] PO 1 tab, administered: 10/22/2016 3:08:00 AM The following Medications were prescribed to the patient: [place] 5 mg / 325 mg tablets: take 1 orally every 6 hours. Dispense ten (10). No refill. Substitution is permissible. -- Feroz Ely Dr.
--- NOTE | 2016-10-29 10:22 | ED MAR SUMMARY ---
..... Medication Administration Record [facility] [address] [place] [address] Patient: NOMI FERGUSON Visit ID: [id number] 36y, M Weight: 119.2 kg Height/Length: 75 in BMI: 32.8 ALLERGIES: Shellfish-derived Products Given 03:08 10/22/2016 Hubert Rossi, R.N. Medication Administered: TORADOL [IM] (KETOROLAC TROMETHAMINE), Dose: 60 mg IM. Medication Ordered: Toradol IM 60 mg (NOW). Given 03:08 10/22/2016 Hubert Rossi, R.N. Medication Administered: HYDROCODONE-APAP [PO] (HYDROCODONE-ACETAMINOPHEN), Dose: 1 tab 5/325 mg Tablets PO. Medication Ordered: Hydrocodone-APAP PO 5/325 mg (NOW, HIGH ALERT MEDICATION).
--- NOTE | 2016-10-29 10:22 | ED DISCHARGE INSTRUCTIONS ---
Patient: NOMI FERGUSON General Instructions [facility] VisitID: [id number] [place] [address] 36y, M Registration Date/Time: 10/22/2016 Acute neck pain. (right sided). INSTRUCTIONS Warnings: GENERAL WARNINGS: Return or contact your physician immediately if your condition worsens or changes unexpectedly, if not improving as expected, or if other problems arise. SPECIFICALLY, return if you develop weakness, numbness, tingling, pain or incontinence. Your Current Medications: CONTINUE TAKING THE FOLLOWING MEDICATIONS: 3 other inhalers * : pt can't remember name. Albuterol Sulfate HFA Inhalation : 2 puffs, prn. Albuterol Sulfate Inhalation : 1 unit dose PRN. GlyBURIDE Oral : 20mg daily. [place]* : med for diabetes. Medication for BP *. MetFORMIN HCl Oral : 1500mg 2x a day. PredniSONE Oral : 10 mg daily. Prescription Medications: [place] 5 mg / 325 mg tablets: take 1 orally every 6 hours. Dispense ten (10). No refill. Substitution is permissible. Follow-up: Return to the emergency department as needed. Follow up with your doctor in three days. Reason for referral: recheck today's concerns. Summary of care provided to patient via paper. Screening today revealed the patient's blood pressure to be in the normal range. The patient should follow up with a primary care provider for blood pressure management. Understanding of the discharge instructions verbalized by patient. ADDITIONAL INFORMATION Neck Pain [No Trauma] There are several possible causes of neck pain without injury: You can get a minor ligament sprain or muscle strain from a sudden minor neck movement. Sleeping with your neck in an awkward position can also cause this. Some persons respond to emotional stress by tensing the muscles of their neck, shoulders and upper back. Chronic spasm in these muscles can cause neck pain and sometimes headaches. Gradualwear and tearof the joints in the spine can cause degenerative arthritis.This can be a source of occasional or chronic neck pain. With aging or repeated small injuries to the neck, the spinal disks (the cushions between each spinal bone) may bulge and put pressure on a nearby spinal nerve. This causes tingling, pain or numbness spreading from the neck to the shoulder, arm or hand on one side. Acute neck pain usually gets better in one to two weeks. Neck pain related to disk disease, arthritis in the spinal joints or spinal stenosis (narrowing of the spinal canal) can become chronic and last for months or years. Unless you had a forceful physical injury (for example, a car accident or fall), X-rays are usually not ordered for the initial evaluation of neck pain. If pain continues and does not respond to medical treatment, x-rays and other tests may be performed at a later time. Home Care: Rest and relax the muscles. Use a comfortable pillow that supports the head and keeps the spine in a neutral position. The position of the head should not be tilted forward or backward. A rolled up towel may help for a custom fit. Some persons find relief with heat (hot shower, hot bath or heating pad) and massage, while others prefer cold packs (crushed or cubed ice in a plastic bag, wrapped in a towel) . Try both and use the method that feels best for 20 minutes several times a day. You may use acetaminophen (Tylenol) or ibuprofen (Motrin, Advil) to control pain, unless another medicine was prescribed. [ NOTE : If you have chronic liver or kidney disease or ever had a stomach ulcer or GI bleeding, talk with your doctor before using these medicines.] Follow Up with your physician or this facility if your symptoms do not show signs of improvement after one week. Physical therapy or further tests may be needed. [NOTE: A radiologist will review any X-rays or CT scans that were taken. We will notify you of any new findings that may affect your care.] Get Prompt Medical Attention if any of the following occur: Pain becomes worse or spreads into one or both arms Weakness or numbness in one or both arms Increasing headache Neck swelling, difficulty or painful swallowing Fever of 100.4F (38C) or higher, or as directed by your healthcare provider Hydrocodone Bitartrate, Acetaminophen Oral tablet What is this medicine? ACETAMINOPHEN; HYDROCODONE (a set a HORACIO janeth fen; hailee droe KOE done) is a pain reliever. It is used to treat mild to moderate pain. How should I use this medicine? Take this medicine by mouth. Swallow it with a full glass of water. Follow the directions on the prescription label. If the medicine upsets your stomach, take the medicine with food or milk. Do not take more than you are told to take. Talk to your broker in charge regarding the use of this medicine in children. This medicine is not approved for use in children. What side effects may I notice from receiving this medicine? Side effects that you should report to your doctor or health direct care provider as soon as possible: allergic reactions like skin rash, itching or hives, swelling of the face, lips, or tongue breathing problems confusion feeling faint or lightheaded, falls stomach pain yellowing of the eyes or skin Side effects that usually do not require medical attention (report to your doctor or health direct care provider if they continue or are bothersome): nausea, vomiting stomach upset What may interact with this medicine? alcohol antihistamines isoniazid medicines for depression, anxiety, or psychotic disturbances medicines for sleep muscle relaxants naltrexone narcotic medicines (opiates) for pain phenobarbital ritonavir tramadol What if I miss a dose? If you miss a dose, take it as soon as you can. If it is almost time for your next dose, take only that dose. Do not take double or extra doses. Where should I keep my medicine? Keep out of the reach of children. This medicine can be abused. Keep your medicine in a safe place to protect it from theft. Do not share this medicine with anyone. Selling or giving away this medicine is dangerous and against the law. Store at room temperature between 15 and 30 degrees C (59 and 86 degrees F). Protect from light. Keep container tightly closed. Throw away any unused medicine after the expiration date. Discard unused medicine and used packaging carefully. Pets and children can be harmed if they find used or lost packages. What should I tell my health care provider before I take this medicine? They need to know if you have any of these conditions: brain tumor Crohn's disease, inflammatory bowel disease, or ulcerative colitis drink more than 3 alcohol-containing drinks per day drug abuse or addiction head injury heart or circulation problems kidney disease or problems going to the bathroom liver disease lung disease, asthma, or breathing problems an unusual or allergic reaction to acetaminophen, hydrocodone, other opioid analgesics, other medicines, foods, dyes, or preservatives or trying to get breast-feeding What should I watch for while using this medicine? Tell your doctor or health direct care provider if your pain does not go away, if it gets worse, or if you have new or a different type of pain. You may develop tolerance to the medicine. Tolerance means that you will need a higher dose of the medicine for pain relief. Tolerance is normal and is expected if you take the medicine for a long time. Do not suddenly stop taking your medicine because you may develop a severe reaction. Your body becomes used to the medicine. This does NOT mean you are addicted. Addiction is a behavior related to getting and using a drug for a non-medical reason. If you have pain, you have a medical reason to take pain medicine. Your doctor will tell you how much medicine to take. If your doctor wants you to stop the medicine, the dose will be slowly lowered over time to avoid any side effects. You may get drowsy or dizzy when you first start taking the medicine or change doses. Do not drive, use machinery, or do anything that may be dangerous until you know how the medicine affects you. Stand or sit up slowly. There are different types of narcotic medicines (opiates) for pain. If you take more than one type at the same time, you may have more side effects. Give your health care provider a list of all medicines you use. Your doctor will tell you how much medicine to take. Do not take more medicine than directed. Call emergency for help if you have problems breathing. The medicine will cause constipation. Try to have a bowel movement at least every 2 to 3 days. If you do not have a bowel movement for 3 days, call your doctor or health direct care provider. Too much acetaminophen can be very dangerous. Do not take Tylenol (acetaminophen) or medicines that contain acetaminophen with this medicine. Many non-prescription medicines contain acetaminophen. Always read the labels carefully. You have been given the following additional information: Neck Pain, No Trauma Hydrocodone Bitartrate, Acetaminophen Oral tablet (Electronically signed by Feroz Ely Dr. 10/29/2016 10:22)
== END 2016-10-22 03:18 | disposition home or self-care (01) ==
LOC: ED SRH 02:33
DX: M54.2 Cervicalgia (principal); I10 Essential (primary) hypertension; E11.9 Type 2 diabetes mellitus without complications; Z79.84 Long term (current) use of oral hypoglycemic drugs; Z91.013 Allergy to seafood; Z79.899 Other long term (current) drug therapy